=== PATIENT | female | born 1995 | race Caucasian/White ===

== ENCOUNTER 2022-04-29 20:05 | Outpatient (CLI) | payer OTHER | END 2022-04-29 20:06 | disposition short-term general hospital (02) | LOC: EMS 20:05 | DX: R45.851 Suicidal ideations (principal) | CPT/HCPCS: A0425; A0429 ==

== ENCOUNTER 2023-02-08 11:10 | Outpatient (CLI) | payer OTHER ==
--- NOTE | 2023-02-08 12:26 | XRAY Report ---
PROCEDURE: Chest 2 View X-Ray INDICATIONS: CHEST PAIN ON BREATHING TECHNIQUE: 2 views of the chest were acquired. COMPARISON: None. FINDINGS: Surgical changes and devices: None. Lungs and pleura: No pleural effusions or pneumothorax. Lungs are clear. Mediastinum: Mediastinal contours are normal. Heart size is normal. Bones and chest wall: No suspicious bony abnormalities. Soft tissues appear unremarkable. IMPRESSION: No acute cardiopulmonary abnormality. Reviewed by: Odilon Grewal MD on 02/08/2023 12:25 PM PDT Approved by: Odilon Grewal MD on 02/08/2023 12:25 PM PDT Station ID: [id number]
== END 2023-02-08 11:11 | disposition home or self-care (01) ==
LOC: DI 11:10
PROVIDERS: ATTEND Registered Nurse
DX: R07.1 Chest pain on breathing (principal); J45.909 Unspecified asthma, uncomplicated

== ENCOUNTER 2023-11-22 12:15 | Emergency (ER) | payer OTHER ==
[2023-11-22 12:51] LABS: BASOPHILS % (AUTO) 0.3 %; EOSINOPHILS # (AUTO) 0.1 10^3/uL (0.0-0.7); EOSINOPHILS % (AUTO) 0.7 %; HGB - HEMOGLOBIN 14.1 g/dL (12.0-16.0); LYMPHOCYTES # (AUTO) 1.7 10^3/uL (1.5-3.5); LYMPHOCYTES % (AUTO) 18.5 %; MEAN CORPUSCULAR VOLUME 90.3 fL (81.0-99.0); MEAN PLATELET VOLUME 9.6 fL (7.9-10.8); MONOCYTES # (AUTO) 0.5 10^3/uL (0.0-1.0); MONOCYTES % (AUTO) 4.8 %; NEUTROPHILS # (AUTO) 7.1 10^3/uL (1.5-6.6); NEUTROPHILS % (AUTO) 75.6 %; PLT - PLATELET COUNT 305 10^3/uL (130-450); RED BLOOD COUNT 4.87 10^6/uL (4.20-5.40); RED CELL DISTRIBUTION WIDTH 12.3 % (12.0-15.0); WHITE BLOOD COUNT 9.4 x10^3/uL (4.8-10.8)
[2023-11-22 13:12] LABS: ALBUMIN 4.9 g/dL (3.2-5.5); BILIRUBIN,TOTAL 0.6 mg/dL (0.2-1.0); CALCIUM 10.1 mg/dL (8.5-10.3); CREATININE 0.8 mg/dL (0.6-1.3); POTASSIUM 4.2 mmol/L (3.5-4.5); TOTAL PROTEIN 7.4 g/dL (6.4-8.9)
[2023-11-22 13:24] LABS: BILIRUBIN,URINE NEGATIVE (NEGATIVE); GLUCOSE, URINE (UA) NEGATIVE (NEGATIVE); KETONES,URINE (UA) 15 mg/dL (NEGATIVE); LEUKOCYTE ESTERASE, URINE NEGATIVE (NEGATIVE); NITRITE,URINE NEGATIVE (NEGATIVE); OCCULT BLOOD,URINE NEGATIVE (NEGATIVE); PH,URINE 6.5 PH (5.0-7.5); PROTEIN,URINE NEGATIVE (NEGATIVE); UROBILINOGEN,URINE 0.2 (NORMAL) E.U./dL (NORMAL)
[2023-11-22 13:25] LABS: CLARITY,URINE CLEAR (CLEAR); HCG UR QUAL NEGATIVE
[2023-11-22] MEDS ORDERED: KETOROLAC 30 MG/ML VIAL IVP STA (17:48)
[2023-11-22] MEDS ORDERED: FAMOTIDINE 20 MG/2 ML VIAL IVP STA (17:48)
[2023-11-22] MEDS ORDERED: SODIUM CHLORIDE 0.9% 1,000 ML IV STA (17:48)
[2023-11-22] MEDS ORDERED: ONDANSETRON 4 MG/2 ML VIAL IVP STA (17:48)
--- NOTE | 2023-11-22 19:26 | Ultrasound Report ---
PROCEDURE: Abdomen Limited INDICATIONS: RUQ pain TECHNIQUE: Real-time focused scanning was performed of the abdomen, with image documentation. COMPARISONS: None. FINDINGS: Liver: Liver is normal in size and homogeneous in echotexture. Gallbladder: Cholelithiasis without wall thickening or pericholecystic. Sonographic Connors sign is ne gative. Biliary ducts: Intrahepatic bile ducts are non-dilated. Extrahepatic bile duct caliber albert ures 3.1 mm. Normal is 6-7 mm or less in diameter, or 10 mm or less post-cholecystectomy. Pancreas: Not well visualized due to overlying bowel gas. Right kidney: Normal in size and echotexture. Right kidney measures 10.9 cm long. No hydronephrosis or nephrolithiasis. No solid masses. No complex renal cystic lesions which require follow-up. Aorta: Visualized aorta is normal in caliber at less than 3 cm. IVC: Intrahepatic inferior vena cava is patent. Miscellaneous: No free abdominal fluid. IMPRESSION: Cholelithiasis without sonographic evidence of acute cholecystitis. Reviewed by: Britney Smith MD on 11/22/2023 7:24 PM PST Approved by: Britney Smith MD on 11/22/2023 7:24 PM PST Station ID: [id number]
[2023-11-22] MEDS ORDERED: ONDANSETRON ODT 4 MG Prepack 2 TL PRN (19:28)
--- NOTE | 2023-11-22 19:34 | ED Physician Documentation ---
PD HPI ABD PAIN - Stated complaint Stated Complaint: ABD PX,N/V - Chief complaint Chief Complaint: Abd Pain - History obtained from History obtained from: Patient - Additional information Additional information: Patient is a 28-year-old female presenting for evaluation of upper abdominal pain that is been ongoing since yesterday with associated nausea and vomiting. Patient states she has been having similar planes on and off when she eats something fatty or greasy. She had chicken and rice and a Twix bar last night. She denies constipation. She has had an episode of loose stool today. No blood in emesis or stools. She still has her gallbladder. No fever, cough, chest pain or difficulty breathing. Denies concerns for . Review of Systems Constitutional: denies: Fever Cardiac: denies: Chest pain / pressure Respiratory: denies: Dyspnea GI: reports: Abdominal Pain, Nausea, Vomiting. denies: Constipation : denies: Dysuria PD PAST MEDICAL HISTORY - Past Medical History Past Medical History: No - Past Surgical History Past Surgical History: Yes HEENT: Tonsil/Adenoidectomy - Present Medications Home Medications: Ambulatory Orders Medication Instructions Recorded Confirmed Ondansetron Odt [Zofran] 4 mg TL Q6H PRN #10 tablet 11/22/23 - Allergies Allergies/Adverse Reactions: Allergies Allergy/AdvReac Type Severity Reaction Status Date / Time No Known Drug Allergies Allergy Verified 11/22/23 12:26 - Social History Does the pt smoke?: Yes Smoking Status: Current every day smoker Does the pt drink ETOH?: No Does the pt have substance abuse?: Yes Substance Use and Type: Marijuana - Immunizations Immunizations are current?: Yes PD ED PE NORMAL - General General: Alert and oriented X 3, No acute distress, Well developed/nourished - HEENT HEENT: Atraumatic, Moist mucous membranes - Neck Neck: Supple, no meningeal sign - Cardiac Cardiac: RRR, Strong equal pulses - Respiratory Respiratory: No respiratory distress, Clear bilaterally - Abdomen Abdomen: Normal bowel sounds, Soft, Non distended, Other (RUQ tenderness, mild epigastric Abdominal tenderness) - Derm Derm: Warm and dry - Neuro Neuro: Normal speech Results - Vitals Vitals: Vital Signs - 24 hr 11/22/23 11/22/23 19:32 20:39 Temperature 36.8 C Heart Rate 83 94 Respiratory 18 18 Rate Blood Pressure 136/86 H 129/74 O2 Saturation 99 100 Oxygen O2 Source Room air - Labs Labs: Laboratory Tests 11/22/23 11/22/23 11/22/23 12:45 12:45 13:10 WBC 9.4 RBC 4.87 Hgb 14.1 Hct 44.0 MCV 90.3 MCH 29.0 MCHC 32.0 RDW 12.3 Plt Count 305 MPV 9.6 Neut # (Auto) 7.1 H Lymph # (Auto) 1.7 Fajardo # (Auto) 0.5 Eos # (Auto) 0.1 Baso # (Auto) 0.0 Absolute Nucleated RBC 0.00 Nucleated RBC % 0.0 Sodium 135 Potassium 4.2 Chloride 101 Carbon Dioxide 26 Anion Gap 8.0 BUN 9 Creatinine 0.8 Estimated GFR (MDRD) 85 L Glucose 99 Calcium 10.1 Total Bilirubin 0.6 AST 13 ALT 13 Alkaline Phosphatase 42 Total Protein 7.4 Albumin 4.9 Globulin 2.5 Albumin/Globulin Ratio 2.0 Lipase 26 Urine Color YELLOW Urine Clarity CLEAR Urine pH 6.5 Ur Specific [place] 1.010 Urine Protein NEGATIVE Urine Glucose (UA) NEGATIVE Urine Ketones 15 H Urine Occult Blood NEGATIVE Urine Nitrite NEGATIVE Urine Bilirubin NEGATIVE Urine Urobilinogen 0.2 (NORMAL) Ur Leukocyte Esterase NEGATIVE Ur Microscopic Review NOT INDICATED Urine Culture Comments NOT INDICATED Urine HCG, Qual NEGATIVE PD Medical Decision Making - ED course Complexity details: reviewed results, re-evaluated patient, d/w patient ED course: Pt with epigastric and RUQ pain after eating. N/V today. Has had similar symptoms recently after eating. VSS. CBC, chemistries, UA/hcg without any significant findings. Pt feeling better after IV fluids, zofran, toradol. U/S with gallstones but no cholecystitis. Pt counseled on need for follow up with surgery to discuss elective gallbladder removal and also advised on adherence to low fat diet. Repeat abdominal exam improved. Pt counseled on concerning symptoms to return for. Departure - Departure Disposition: 01 Home, Self Care Clinical Impression: Biliary colic, Gallstones Condition: Stable Instructions: ED Diet Low Fat, ED Gallstone W Biliary Colic Follow-Up: [facility] [Provider Group] Prescriptions: Ondansetron Odt [Zofran] 4 mg TL Q6H PRN #10 tablet PRN Reason: Nausea / Vomiting Comments: Your testing today shows that you have gallstones which is likely the source of your pain. You need to stick to a strict low-fat diet as eating of fatty or greasy foods will trigger your gallbladder pain. I would also recommend close follow-up with a surgeon as you likely need to have your gallbladder removed as an outpatient. At this time with there is no signs of infection to indicate you need your gallbladder out emergently. I have sent a prescription for antinausea medications to [facility] in [place]. Return to the emergency department with any worsening symptoms. Forms: PCP List Discharge Date/Time: 11/22/23 20:39
[2023-11-22 20:44] VITALS: BP 129/74; O2SAT 100
== END 2023-11-22 20:39 | disposition home or self-care (01) ==
LOC: ED 12:15
DX: K80.70 Calculus of gallbladder and bile duct without cholecystitis without obstruction (principal); F17.200 Nicotine dependence, unspecified, uncomplicated
CPT/HCPCS: 36415; 80053; 81001; 81003; 81025; 83690; 85025; 87086; 96374; 96375; 99283